=== PATIENT | male | born 1970 | race Caucasian/White ===

== ENCOUNTER 2017-09-13 07:39 | Day surgery (SDC) | payer OTHER ==
[~2017-09-13] VITALS: Ht 172.7 cm; Wt 74.8 kg
[2017-09-13] MEDS ORDERED: SODIUM CHLORIDE 0.9% 1,000 ML IV SCH (08:43)
[2017-09-13] MEDS ORDERED: POTASSIUM PO (08:53)
[2017-09-13] MEDS ORDERED: CETI10TA24 PO (08:53)
[2017-09-13] MEDS ORDERED: RANI75TA12 PO (08:53)
[2017-09-13] MEDS ORDERED: MULT-658 PO (08:53)
[2017-09-13] MEDS ORDERED: CALCIUM PO (08:53)
[2017-09-13] MEDS ORDERED: MORPHINE ER PO (08:53)
[2017-09-13] MEDS ORDERED: [UNRECOGNIZED DRUG - CODE] PO (08:53)
[2017-09-13] MEDS ORDERED: CHLO25TA4 PO (08:53)
[2017-09-13] MEDS ORDERED: LORA0.5T PO (08:53)
[2017-09-13] MEDS ORDERED: POLY17PO5 PO (08:53)
[2017-09-13] MEDS ORDERED: HYDR-3245 PO (08:53)
[2017-09-13] MEDS ORDERED: ALBU90AE INH (08:53)
[2017-09-13] MEDS ORDERED: SENN-1 PO (08:55)
[2017-09-13] MEDS ORDERED: OMEP-110 PO (08:56)
[2017-09-13] MEDS ORDERED: VITAMIN B12 PO (08:57)
[2017-09-13 08:58] VITALS: BP 123/77
[2017-09-13 09:00] LABS: BASOPHILS # (AUTO) 0.08 x10^3/uL (0-0.1); BASOPHILS % (AUTO) 1 % (0-1); EOSINOPHILS % (AUTO) 3 % (1-7); LYMPHOCYTES # (AUTO) 1.68 x10^3/uL (1-3.4); LYMPHOCYTES % (AUTO) 15 % (22-44); MD NO; MEAN CORPUSCULAR HEMOGLOBIN 28.2 pg (27.5-34.5); MEAN CORPUSCULAR HGB CONC 32.5 g/dL (33.2-36.2); MEAN CORPUSCULAR VOLUME 86.7 fL (81-97); MEAN PLATELET VOLUME 6.1 fL (7.4-10.4); MONOCYTES # (AUTO) 0.33 x10^3/uL (0.2-0.8); MONOCYTES % (AUTO) 3 % (2-9); NEUTROPHILS % (AUTO) 78 % (42-75); PLATELET COUNT 775 x10^3/uL (130-400); RED BLOOD COUNT 3.59 x10^6/uL (4.38-5.82); RED CELL DISTRIBUTION WIDTH 18.5 % (9.4-14.8)
[2017-09-13 09:20] LABS: PROTHROMBIN TIME 10.4 Seconds (9.6-11.5)
[2017-09-13] MEDS ORDERED: FENTANYL PF 100 MCG/2ML ONE ×2 (09:20)
[2017-09-13] MEDS ORDERED: MIDAZOLAM 1 MG/ML, 5ML ONE ×2 (09:20)
[2017-09-13] MEDS ORDERED: LIDOCAINE 2%, 20ML ONE (10:30)
[2017-09-13] MEDS ORDERED: LIDOCAINE 4% TOPICAL SOLUTION 50 ML ONE (10:30)
[2017-09-13] MEDS ORDERED: LIDOCAINE GEL 2%, 5ML ONE (10:30)
[2017-09-13] MEDS ORDERED: ONDANSETRON 2MG/ML, 2ML ONE (11:18)
[2017-09-13] MEDS ORDERED: ONDANSETRON 2MG/ML, 2ML IVPush ONE (11:30)
== END 2017-09-13 12:20 ==
LOC: OUT 07:39
PROVIDERS: ATTEND Internal Medicine
DX: R05 Cough (principal); R91.8 Other nonspecific abnormal finding of lung field; Z85.118 Personal history of other malignant neoplasm of bronchus and lung; Z87.891 Personal history of nicotine dependence; Z88.0 Allergy status to penicillin; Z79.01 Long term (current) use of anticoagulants
CPT/HCPCS: 31624; 36415; 85025; 85610; 85730; 87015; 87070; 87102; 87116; 87205; 87206; 99152; 99153; J2250; J2405; J3010; J3490; J7030